=== PATIENT | female | born 1995 | race American Indian/Alaskan Native ===

== ENCOUNTER 2020-03-10 18:10 | Emergency (ER) | payer SELFPAY ==
[2020-03-10 18:22] VITALS: BP 131/72
== END 2020-03-11 00:30 ==
LOC: ED 18:10
DX: R06.4 Hyperventilation (principal); R10.9 Unspecified abdominal pain; R11.2 Nausea with vomiting, unspecified; Z53.21 Procedure and treatment not carried out due to patient leaving prior to being seen by health care provider